=== PATIENT | male | born 1970 | race Two or more races ===

== ENCOUNTER 2025-03-19 10:10 | Emergency (ER) | payer BC, SELFPAY ==
[2025-03-19 10:11] VITALS: BMI 27.1
[2025-03-19 10:32] VITALS: BP 152/90; PULSE 76; RESP 18; TEMP 36.9; O2SAT 98
--- NOTE | 2025-03-19 10:37 | XR_ITS ---
Examination: Abdomen sonogram, Limited Date and time of exam: March 19, 2025, 1041 hrs. Indications: Epigastric pain beginning 4 days ago Technique: Real-time ordoñez scale transabdominal sonographic images of the upper abdomen obtained. Findings: Negative for gallstones Gallbladder wall 0.38 cm, no gallbladder wall edema Pancreatic head 3.2 cm Liver 15.6 cm no focal liver lesions Normal hepatopedal portal venous oh Impression: Negative for cholelithiasis Borderline thickening gallbladder wall without edema, clinical correlation advised As clinically warranted, consider HIDA scan or MRCP follow-up
--- NOTE | 2025-03-19 10:38 | PD.EDRME ---
Rapid Medical Screening Exam RME Arrival date/time: 03/19/25 10:10 54-year-old male with no known medical history presents to the emergency room with a chief complaint of 8 out of 10 epigastric pain x 2 days I have greeted and performed a focused initial assessment of this patient. A comprehensive ED assessment and evaluation of the patient, analysis of all test results, and completion of the medical decision making process will be conducted by additional ED providers. Chief Complaint: Abdominal Pain Time Seen by Provider: 03/19/25 10:24 Vital signs: Vital Signs Temperature 98.5 F 03/19/25 10:32 Pulse Rate 76 03/19/25 10:32 Respiratory Rate 18 03/19/25 10:32 Blood Pressure 152/90 H 03/19/25 10:32 Pulse Oximetry (%) 98 03/19/25 10:32 Oxygen Delivery Method Room Air 03/19/25 10:32 Vital signs reviewed by provider: Yes
[2025-03-19 11:50] LABS: Collection Type, Urine Clean Catch
[2025-03-19 11:58] LABS: Bilirubin,Urine Negative (Negative); Blood,Urine Negative (Negative); Clarity,Urine Clear (Clear/Hazy); Color,Urine Colorless (Lt Yel-Yel); Glucose, Urine Negative (Negative); Ketones,Urine Negative (Negative); Leukocyte Esterase,Urine Negative (Negative); Nitrite,Urine Negative (Negative); PH,Urine 7.0 (5.0-7.0); Protein,Urine Negative (Neg - Trace); RBC,Urine 1 /hpf (0-3); Specific Gravity,Urine 1.007 (1.001-1.035); Squamous Epithelial Cell,Urine 1 /hpf (0-5); Urobilinogen,Urine Negative mg/dL (0.0-1.0); WBC,Urine 5 /hpf (0-5)
--- NOTE | 2025-03-19 12:09 | EDNOTE_ITS ---
ED Abdominal Pain RME/HPI General Chief Complaint: Abdominal Pain Stated complaint: INTERMIT. PAIN UPPER ABD X 4 DAYS; SENT BY CLINIC Time seen by provider: 03/19/25 10:24 Arrival date/time: 03/19/25 10:10 This is a 54-year-old male that comes into the emergency room with complaints of epigastric pain that started about 5 days ago. Patient states that it was not triggered by anything he did. Patient and drinking does not bother it. Patient reports that the pain does not radiate anywhere. Patient denies any fever, nausea, vomiting, diarrhea. Patient denies past medical history. Patient denies any other complaints. Patient denies chest pain shortness of breath. RME / HPI RME / HPI narrative: 03/19/25 10:10 54-year-old male with no known medical history presents to the emergency room with a chief complaint of 8 out of 10 epigastric pain x 2 days I have greeted and performed a focused initial assessment of this patient. A comprehensive ED assessment and evaluation of the patient, analysis of all test results, and completion of the medical decision making process will be conducted by additional ED providers. Related Data Home Medications ?Medication ?Instructions ?Recorded ?Confirmed No Known Home Medications 09/21/1707/17 Allergies Allergy/AdvReac Type Severity Reaction Status Date / Time No Known Allergies Allergy Verified 03/19/25 10:14 Review of Systems Review of Systems Systems Reviewed: All systems reviewed, normal except as documented Past Medical History Past Medical History Comments PMH COMMENT: denies ED Exam Narrative Physical exam: VITAL SIGNS: Reviewed. GENERAL APPEARANCE: Alert and interactive, follows commands, no acute distress, HEAD AND FACE: Non-traumatic. ENT: PERRL, conjuctiva pink and clear, eyelid no trauma, Mucous membrane moist. NECK: Supple, nontender, no nuchal rigidity. CHEST: No tenderness, no crepitus, no paradoxical movement, no retractions. LUNGS: Clear, well ventilated, symmetric, no rales, no wheezing, no rhonchi, no stridor, good breath sounds bilaterally. HEART: Regular rate, regular rhythm, no murmur, no gallops. ABDOMEN: Soft, nondistended., nontender to palpation NEUROLOGICAL: Gross motor function intact sensory function intact, Appropriate for age. MUSCULOSKELETAL: low back nontender, full range of motion. EXTREMITIES: No redness no swelling no skin breakdown on bilateral foot and leg. Distal neurovascular status intact bilateral foot SKIN: Color pink, dry, no rash, no lacerations. Course Quality Measures none Orders Category Date Time Status US gall bladder Stat Exams 03/19/25 10:37 Completed CBC Stat Lab 03/19/25 11:55 Completed CMP [Comprehensive Metabolic Panel] Stat Lab 03/19/25 11:55 Completed Lipase Stat Lab 03/19/25 11:55 Completed UA [Urinalysis] Stat Lab 03/19/25 11:15 Completed Urine Culture Stat Lab 03/19/25 11:15 Received Acetaminophen Tab [Tylenol ES Tab] Med 03/19/25 13:29 Discontinued 1,000 mg PO X1 ONE Ibuprofen Tab [Motrin Tab] Med 03/19/25 13:29 Discontinued 800 mg PO X1 ONE Lidocaine 2% Viscous [Xylocaine 2% Viscous] Med 03/19/25 12:03 Discontinued 10 ml PO X1 ONE mg Hyd/Al Hyd/Jose Susp [Maalox Susp] Med 03/19/25 12:03 Discontinued 30 ml PO X1 ONE Vital Signs Vital signs: Vital Signs Temperature 98.5 F 03/19/25 10:32 Pulse Rate 76 03/19/25 10:32 Respiratory Rate 18 03/19/25 10:32 Blood Pressure 152/90 H 03/19/25 10:32 Pulse Oximetry (%) 98 03/19/25 10:32 Oxygen Delivery Method Room Air 03/19/25 10:32 Abdominal Pain MDM MDM Narrative MDM Narrative:: Labs reviewed. Patient's white count is 9.5, hemoglobin and hematocrit are 16.4 and 47. BMP essentially unremarkable. LFTs within normal limits. Lipase is 36. UA unremarkable. Patient's ultrasound of his abdomen negative for cholelithiasis. We did give patient a GI cocktail. Patient really did not have relief with this. Patient states he has a mild headache. Will give patient some ibuprofen and Tylenol. I did talk to patient at length and let him know that he may need to further work up with his primary doctor. I explained to him if symptoms change or worsen he needs to come back to the emergency room. Patient verbalized understanding and is comfortable plan of care. impression: Negative for cholelithiasis Borderline thickening gallbladder wall without edema, clinical correlation advised As clinically warranted, consider HIDA scan or MRCP follow-up Naraon dictation: Although this document has been carefully reviewed, there may still be some phonetic and other typographical errors. These errors are purely grammatical due to imperfections in the software program and should not be construed in any way to compromise the substance of the patient's medical care during this visit. Patient data External records reviewed:: [facility] previous records Clinical information provided by:: patient Social determinants that could affect healthcare access:: none Patient has the following chronic illnesses:: none How is presenting disease/condition affected by chronic disease/condition?: no chronic disease Evaluation data The following diagnostics were reviewed and interpreted by me:: lab results and radiology exam(s) Lab and/or radiology exams considered but not ordered:: none Interpretation Summary: see note Medications / Prescriptions Medications or Prescriptions considered but not ordered:: none Medication administrations:: Medication Administration History Discontinued Medications Acetaminophen (Acetaminophen 500 Mg Tablet) 1,000 mg PO X1 ONE Stop: 03/19/25 13:30 Last Admin: 03/19/25 13:38 Dose: 1,000 mg Documented By: JOÃO Al Hydrox/Mg Hydrox/Simethicone (Mg Hyd/Al Hyd/Jose (Maalox Reg) Susp 30 Ml Udc) 30 ml PO X1 ONE Stop: 03/19/25 12:04 Last Admin: 03/19/25 12:48 Dose: 30 ml Documented By: CRISTA Ibuprofen (Ibuprofen Tab 400 Mg Tablet) 800 mg PO X1 ONE Stop: 03/19/25 13:30 Last Admin: 03/19/25 13:39 Dose: 800 mg Documented By: JOÃO Lidocaine HCl (Lidocaine Viscous 2% 15 Ml Udc) 10 ml PO X1 ONE Stop: 03/19/25 12:04 Last Admin: 03/19/25 12:48 Dose: 10 ml Documented By: TM see [facility] Consultations Consultation(s) initiated? (list below): No Diagnosis Differential diagnosis abdominal pain: abdominal pain, calculus of kidney, gastroenteritis, pancreatitis and other (gerd, gallastines ) Most likely diagnosis given after review of the tests above:: abdominal pain Admission Indicated Admission indicated?: not indicated Admission Request Was there a request for admission?: No Disposition Plan Disposition Plan: Discharge Discharge Attestation Discharge Attestation: The patient and all family members were given an opportunity to ask questions and understood the discharge instructions. Discharge instructions specifically effects, indications for sooner follow up or return to the emergency department, and the expected course of current diagnosis. Patient condition: Stable Discharge Plan Plan Patient Disposition: HOME (Self Care) Patient condition on transfer: Stable Prescriptions/Referrals Prescriptions/Med Rec: No Action No Known Home Medications Referrals: Lonnie Marcum MD [Primary Care Provider] - In 1 week Problem List Clinical Impression: Abdominal pain Patient/Caregiver Discharge Instructions Discharge Activity: activity as tolerated Education Materials: Abdominal Pain Additional Instructions: Iris un valentina con dowd medico de cabecera en las proximas 24-48 horas. Regrese a la jennifer de emergencias si hay evidencia de que los signos o sintomas empeoran. Print Language: Serbian Stand Alone Forms: Michelle Award Info., Patient Portal Info Letter PA/MARIO Supervising Physician MAX/MARIO Supervising Physician: kelsea
[2025-03-19 12:20] LABS: Basophils # (Auto) 0.1 Thou/mm3 (0.0-0.2); Basophils % (Auto) 1 % (0-2.5); Eosinophils # (Auto) 0.1 Thou/mm3 (0.0-0.5); Eosinophils % (Auto) 1 % (0-10); Hematocrit 47.0 % (41.0-53.0); Hemoglobin 16.4 g/dL (13.5-16.0); Immature Granulocytes Auto 0.03 Thou/mm3 (0.00-0.00); Lymphocytes # (Auto) 3.2 Thou/mm3 (1.0-4.8); Lymphocytes % (Auto) 33 % (10-50); Mean Corpuscular HGB Conc 34.9 g/dl (31.0-37.0); Mean Corpuscular Hemoglobin 31.6 pg (25.0-35.0); Mean Corpuscular Volume 91 fL (80-100); Monocytes # (Auto) 0.7 Thou/mm3 (0.0-0.8); Monocytes % (Auto) 8 % (0-12); Neutrophils # (Auto) 5.4 Thou/mm3 (1.8-7.7); Neutrophils % (Auto) 57 % (37-80); Nucleated Red Blood Cell # 0.00 Thou/mm3 (0.00-0.00); Nucleated Red Blood Cell % 0 /100 WBC (0); Platelet Count 238 Thou/mm3 (140-440); RDW Standard Deviation 45.1 fL (35.1-43.9); Red Blood Count 5.19 Miln/mm3 (4.50-5.90); White Blood Count 9.5 Thou/mm3 (3.8-10.6)
[2025-03-19 12:30] VITALS: BP 166/94; PULSE 58; RESP 16; TEMP 36.4; O2SAT 97
[2025-03-19] MEDS: MG HYD/AL HYD/SIME (Maalox Reg) SUSP 30 ML UDC PO (12:48)
[2025-03-19] MEDS: LIDOCAINE VISCOUS 2% 15 ML UDC 10 ML PO (12:48)
[2025-03-19 13:12] LABS: Alanine Aminotransferase 14 U/L (10-49); Albumin, Serum 4.3 gm/dL (3.5-5.0); Albumin/Globulin Ratio 1.8 (1.2-2.2); Alkaline Phosphatase 90 U/L (46-116); Anion Gap 9 (7-16); Aspartate Amino Transferase 17 U/L (0-34); BUN/Creatinine Ratio 9 Ratio (12-20); Bilirubin,Total 0.4 mg/dL (0.3-1.2); Blood Urea Nitrogen 8 mg/dL (9-23); Calcium 9.4 mg/dL (8.3-10.6); Calcium (Corrected) 9.4 mg/dL (8.5-10.1); Carbon Dioxide 25.2 mMol/L (20.0-31.0); Chloride 105 mMol/L (98-107); Creatinine (Component) 0.9 mg/dL (0.6-1.3); Estimated Creatinine Clearance 101.8 mL/min (>60); Globulin 2.4 gm/dL (2.3-3.5); Glucose 93 mg/dL (74-106); Lipase 36 U/L (12-53); Osmolality,Calculated 275 (275-295); Potassium 4.3 mMol/L (3.4-5.1); Sodium 139 mMol/L (136-145); Total Protein 6.7 gm/dL (5.7-8.2); eGFR > 60 See Note
[2025-03-19] MEDS: ACETAMINOPHEN 500 MG TABLET 1000 MG PO (13:38)
[2025-03-19] MEDS: IBUPROFEN TAB 400 MG TABLET 800 MG PO (13:39)
== END 2025-03-19 13:52 | disposition home or self-care (01) ==
PROVIDERS: Nurse Practitioner Family; Emergency Provider Family Medicine; PCP Internal Medicine
DX: K82.8 Other specified diseases of gallbladder (principal)
CPT/HCPCS: 36415; 76705; 80053; 81001; 83690; 85025; 87086; 99283; J3490; A9270

== ENCOUNTER → 2025-03-21 | Outpatient (CLI) | payer BC, SELFPAY ==
[2025-03-21 08:40] LABS: Basophils # (Auto) 0.0 Thou/mm3 (0.0-0.2); Basophils % (Auto) 1 % (0-2.5); Eosinophils # (Auto) 0.2 Thou/mm3 (0.0-0.5); Eosinophils % (Auto) 4 % (0-10); Hematocrit 44.2 % (41.0-53.0); Hemoglobin 15.5 g/dL (13.5-16.0); Immature Granulocytes Auto 0.03 Thou/mm3 (0.00-0.00); Lymphocytes # (Auto) 2.9 Thou/mm3 (1.0-4.8); Lymphocytes % (Auto) 48 % (10-50); Mean Corpuscular HGB Conc 35.1 g/dl (31.0-37.0); Mean Corpuscular Hemoglobin 31.6 pg (25.0-35.0); Mean Corpuscular Volume 90 fL (80-100); Monocytes # (Auto) 0.5 Thou/mm3 (0.0-0.8); Monocytes % (Auto) 8 % (0-12); Neutrophils # (Auto) 2.4 Thou/mm3 (1.8-7.7); Neutrophils % (Auto) 40 % (37-80); Nucleated Red Blood Cell # 0.00 Thou/mm3 (0.00-0.00); Nucleated Red Blood Cell % 0 /100 WBC (0); Platelet Count 231 Thou/mm3 (140-440); RDW Standard Deviation 44.2 fL (35.1-43.9); Red Blood Count 4.90 Miln/mm3 (4.50-5.90); White Blood Count 6.1 Thou/mm3 (3.8-10.6)
[2025-03-21 08:51] LABS: Glucose Estimated Average 123 mg/dL (80-131); Hemoglobin A1C 5.9 % Hgb (4.8-6.0)
[2025-03-21 09:03] LABS: Alanine Aminotransferase 12 U/L (10-49); Albumin, Serum 4.2 gm/dL (3.5-5.0); Albumin/Globulin Ratio 2.0 (1.2-2.2); Alkaline Phosphatase 85 U/L (46-116); Anion Gap 6 (7-16); Aspartate Amino Transferase 14 U/L (0-34); BUN/Creatinine Ratio 12 Ratio (12-20); Bilirubin,Total 0.5 mg/dL (0.3-1.2); Blood Urea Nitrogen 11 mg/dL (9-23); Calcium 9.0 mg/dL (8.3-10.6); Calcium (Corrected) 9.0 mg/dL (8.5-10.1); Carbon Dioxide 26.8 mMol/L (20.0-31.0); Cardiac Risk Estimate 6.9 RATIO (4.0-6.7); Chloride 106 mMol/L (98-107); Cholesterol 243 mg/dL (132-200); Creatinine (Component) 0.9 mg/dL (0.6-1.3); Free T4 (Free Thyroxine) 1.11 ng/dL (0.89-1.76); Globulin 2.1 gm/dL (2.3-3.5); Glucose 100 mg/dL (74-106); HDL Cholesterol 35 mg/dL (40-60); LDL Cholesterol,Calculated 179 mg/dL (0-130); Osmolality,Calculated 276 (275-295); Potassium 4.4 mMol/L (3.4-5.1); Sodium 139 mMol/L (136-145); Thyroid Stimulating Hormone 1.10 uIU/mL (0.55-4.78); Total Protein 6.3 gm/dL (5.7-8.2); Triglycerides 144 mg/dL (30-150); eGFR > 60 See Note
[2025-03-21 09:04] LABS: Vitamin D 25 Hydroxy Total 26.6 ng/mL (7.3-40.2)
== END | disposition home or self-care (01) ==
LOC: COPL 07:26
PROVIDERS: PCP Internal Medicine; Referring Provider Internal Medicine; Visit Provider Internal Medicine
DX: Z00.00 Encounter for general adult medical examination without abnormal findings (principal)
CPT/HCPCS: 36415; 80053; 80061; 82306; 83036; 84439; 84443; 85025

== ENCOUNTER → 2025-03-24 | Outpatient (CLI) | payer BC, SELFPAY ==
--- NOTE | 2025-03-24 14:52 | XR_ITS ---
Examination: PA lateral chest 2 views TECHNIQUE: Upright PA lateral chest 2 views Date and time: April 03, 2025 1522 hours Comparison June 08, 2023 INDICATIONS: Upper abdominal and chest pain beginning 7 days ago FINDINGS: Normal heart size. Lungs are clear. The osseous structures are intact IMPRESSION: No active disease
== END | disposition home or self-care (01) ==
PROVIDERS: PCP Internal Medicine; Referring Provider Internal Medicine; Visit Provider Internal Medicine
DX: R07.9 Chest pain, unspecified (principal)
CPT/HCPCS: 71046

== ENCOUNTER → 2025-05-17 | Outpatient (CLI) | payer BC, SELFPAY ==
[2025-05-17 17:07] LABS: Prostate Specific Antigen 0.48 ng/mL (0-4.00)
[2025-05-22 07:26] LABS: Fecal Globin Result NOT DETECTED (NOT DETECTED)
== END | disposition home or self-care (01) ==
PROVIDERS: PCP Internal Medicine; Referring Provider Internal Medicine; Visit Provider Surgery
DX: Z00.00 Encounter for general adult medical examination without abnormal findings (principal); N40.1 Benign prostatic hyperplasia with lower urinary tract symptoms
CPT/HCPCS: 36415; 82274; 84153; G0328